=== PATIENT | female | born 1980 | race American Indian/Alaskan Native ===

== ENCOUNTER 2018-06-21 22:26 | Emergency (ER) | payer OTHER ==
--- NOTE | 2018-06-21 22:41 | Emergency Department Report ---
Chief Complaint: Dyspnea/Respdistress Stated Complaint: SOB,EDEMA Time Seen by Provider: 06/21/18 22:40 - HPI History of Present Illness: ble pain sent by [facility] 3 y ago no blood thinners bc- esure no sob or cp mse completed - Exam Vital Signs: Vital Signs 06/21/18 22:38 Temperature 98.6 F Pulse Rate 78 Respiratory 16 Rate Blood Pressure 123/82 O2 Sat by Pulse 96 Oximetry MSE screening note: Focused history and physical exam performed. Due to findings the following was ordered: ED Disposition for MSE Condition: Stable
[2018-06-21 23:50] LABS: Alanine Aminotransferase 14 units/L (7-56); Albumin 3.8 g/dL (3.9-5); BUN/Creatinine Ratio 13; Blood Urea Nitrogen 9 mg/dL (7-17); Calcium 8.8 mg/dL (8.4-10.2); Hemolysis Index 4
[2018-06-21 23:52] LABS: Hematocrit 37.1 % (30.3-42.9); Hemoglobin 12.1 gm/dl (10.1-14.3); Mean Corpuscular HGB Conc 33 % (30-34); Mean Corpuscular Volume 75 fl (79-97); Platelet Count 229 K/mm3 (140-440); Red Blood Count 4.93 M/mm3 (3.65-5.03); Red Cell Distribution Width 15.9 % (13.2-15.2)
[2018-06-22] MEDS ORDERED: IBUPROFEN PO ONE (00:27)
[2018-06-22] MEDS ORDERED: TYLENOL PO ONE (00:27)
--- NOTE | 2018-06-22 00:28 | Emergency Department Report ---
ED General Adult HPI - General Chief complaint: Dyspnea/Respdistress Stated complaint: SOB,EDEMA Time Seen by Provider: 06/21/18 22:40 Source: patient, RN notes reviewed Mode of arrival: Ambulatory Limitations: No Limitations - History of Present Illness Initial comments: Primary care DrElijah: Erich stock This is an obese 38-year-old female, who reports that she is not , who reports a history of associated DVT. She presents to the emergency room today with complaint of nontraumatic right dorsal and distal foot pain, right medial ankle pain, and right distal medial lower extremity pain. This is a throbbing aching pain, present for 2 weeks, intermittent, worsens with palpation, and it decreases with rest. Patient denies oral contraceptive use, calf pain, Swelling and chest pain. She endorses shortness of breath. The shortness of breath is present for 4-5 days. It is intermittent. It is nonexertional. Patient reports that she feels like she "worked out really heavy." The patient also complains of headache. The headache is "all over my head." The headache has been present constantly for 2 weeks. The headache is not described as sudden or thunderclap in nature, she reports it did not reach maximal intensity within an hour, and there is no vomiting, neck pain or neck stiffness. There is no focal extremity weakness. There is no ataxia. The patient reports she has not taken any [id number] medications. Apparently, the [facility] sent her here to exclude a DVT. -: Gradual, week(s) Location: head, right, lower extremity Severity scale (0 -10): 0 Quality: aching Consistency: other Improves with: other Worsens with: other - Related Data Previous Rx's Medication Instructions Recorded Last Taken Type Acetaminophen [Tylenol Arthritis] 650 mg PO Q6HR PRN #30 tablet.er 06/22/18 Unknown Rx Ibuprofen [Motrin] 600 mg PO Q8H PRN #30 tablet 06/22/18 Unknown Rx Allergies Allergy/AdvReac Type Severity Reaction Status Date / Time chlorhexidine Allergy Unknown Verified 06/21/18 22:31 latex Allergy Unknown Verified 06/21/18 22:31 ED Review of Systems ROS: Stated complaint: SOB,EDEMA Other details as noted in HPI Constitutional: denies: fever Eyes: denies: eye discharge ENT: denies: congestion Respiratory: shortness of breath Cardiovascular: denies: chest pain Musculoskeletal: arthralgia, myalgia Skin: denies: lesions Neurological: headache. denies: weakness, numbness, paresthesias, confusion ED Past Medical Hx - Past Medical History Previous Medical History?: Yes Hx Deep Vein Thrombosis: Yes - Surgical History Past Surgical History?: No - Social History Smoking Status: Never Smoker Substance Use Type: None - Medications Home Medications: Home Medications Medication Instructions Recorded Confirmed Last Taken Type Acetaminophen [Tylenol Arthritis] 650 mg PO Q6HR PRN #30 tablet.er 06/22/18 Unknown Rx Ibuprofen [Motrin] 600 mg PO Q8H PRN #30 tablet 06/22/18 Unknown Rx ED Physical Exam - General Limitations: No Limitations General appearance: alert, obese - Head Head exam: Present: atraumatic, normocephalic - Eye Eye exam: Present: normal appearance, EOMI. Absent: nystagmus - ENT ENT exam: Present: normal exam, normal orophraynx, mucous membranes moist, normal external ear exam - Neck Neck exam: Present: normal inspection, full ROM. Absent: tenderness, meningismus - Respiratory Respiratory exam: Present: normal lung sounds bilaterally. Absent: respiratory distress - Cardiovascular Cardiovascular Exam: Present: regular rate, normal rhythm, normal heart sounds. Absent: bradycardia, tachycardia, irregular rhythm, systolic murmur, diastolic murmur, rubs, gallop - GI/Abdominal GI/Abdominal exam: Present: soft. Absent: distended, tenderness, guarding, rebound, rigid, pulsatile mass - Extremities Exam Extremities exam: Present: normal inspection (on the dorsal distal aspect of the right foot, on the medial aspect of the ankle joint, there is some tenderness. There is no redness, warmth, pus, streaking or crepitus.), full ROM, other (2+ pulses noted in the bilateral upper, lower extremities. Compartments soft. No long bony tenderness. The pelvis is stable.). Absent: pedal edema, joint swelling, calf tenderness - Back Exam Back exam: Present: normal inspection, full ROM. Absent: paraspinal tenderness, vertebral tenderness - Neurological Exam Neurological exam: Present: alert, normal gait, other (Extraocular movements intact. Tongue midline. No facial droop. Facial sensation intact to light touch in the V1, V2, V3 distribution bilaterally. 5 and 5 strength in 4 extremities.. Sensation is intact to light touch in 4 extremities.). Absent: motor sensory deficit - Psychiatric Psychiatric exam: Present: normal affect, normal mood - Skin Skin exam: Present: warm, dry, intact, normal color. Absent: rash ED Course Vital Signs 06/21/18 06/22/18 06/22/18 22:38 00:16 00:34 Temperature 98.6 F 98.1 F 98.1 F Pulse Rate 78 73 73 Respiratory 16 21 21 Rate Blood Pressure 123/82 111/78 Blood Pressure 111/78 [Left] O2 Sat by Pulse 96 99 99 Oximetry 06/22/18 06/22/18 06/22/18 00:40 00:42 01:00 Temperature Pulse Rate 72 Respiratory 15 15 21 Rate Blood Pressure 109/76 Blood Pressure [Left] O2 Sat by Pulse 100 Oximetry 06/22/18 06/22/18 06/22/18 01:23 01:24 01:53 Temperature Pulse Rate Respiratory 15 25 H 15 Rate Blood Pressure Blood Pressure [Left] O2 Sat by Pulse Oximetry - Reevaluation(s) Reevaluation #1: 06/22/18 00:52 Differential diagnosis, including but limited to: Lower extremity sprain, strain, lower extremity DVT, migraine headache, tension headache, cluster headache, physical deconditioning, obesity, pulmonary hypertension, pneumonia, pneumothorax, pulmonary embolus Assessment and plan: 38-year-old female with multiple complaints. Complaint #1, right lower extremity pain: No redness, pus or streaking. No palpable cord. Most likely musculoskeletal in nature. I doubt a fracture, she is walking with a steady gait. Patient arrived after hours, and currently, we do not have staff members available to perform a lower extremity duplex study. Therefore, I have ordered an outpatient DVT study to be performed. We will treat the patient's pain. Complaint #2, headaches: Headache is present for 2 weeks. The patient has a normal neurologic examination. She has normal vital signs. She walks with a steady gait. Her headache does not have any red flag historical features, to suggest infectious or space-occupying lesion, or hemorrhagic stroke. Therefore, we'll treat the patient with pain medication. Complaint #3, shortness of breath: Patient appears to be fairly obese, and is most likely physically deconditioned. She is not tachycardic, she is not hypoxic, and she is saturating at 99, 100% on room air. EKG is unremarkable, her pulmonary exam is unremarkable, I doubt pulmonary embolus, but we will send a d-dimer to risk stratify the patient. At this point in time, I have a low pretest probability for pulmonary embolus. We will also obtain a chest x-ray. Reevaluation #2: 06/22/18 01:23 Care will be transferred to the overnight physician, Dr. Ag Gibson He will follow up on CT scan of the chest. Explain this to patient. Also explained that patient would need to follow-up as an outpatient for her DVT study. Assuming no pulmonary embolus was identified, we would consider the patient medically suitable for discharge with outpatient follow-up. ED Medical Decision Making - Lab Data Result diagrams: 06/21/18 23:01 06/21/18 23:01 Vital Signs 06/21/18 06/22/18 06/22/18 22:38 00:16 00:40 Temperature 98.6 F 98.1 F Pulse Rate 78 73 Respiratory 16 21 15 Rate Blood Pressure 123/82 Blood Pressure 111/78 [Left] O2 Sat by Pulse 96 99 Oximetry 06/22/18 00:42 Temperature Pulse Rate Respiratory 15 Rate Blood Pressure Blood Pressure [Left] O2 Sat by Pulse Oximetry Lab Results 06/21/18 06/21/18 Range/Units 23:01 23:01 WBC 9.0 (4.5-11.0) K/mm3 RBC 4.93 (3.65-5.03) M/mm3 Hgb 12.1 (10.1-14.3) gm/dl Hct 37.1 (30.3-42.9) % MCV 75 L (79-97) fl MCH 25 L (28-32) pg MCHC 33 (30-34) % RDW 15.9 H (13.2-15.2) % Plt Count 229 (140-440) K/mm3 Sodium 135 L (137-145) mmol/L Potassium 3.5 L (3.6-5.0) mmol/L Chloride 100.0 (98-107) mmol/L Carbon Dioxide 24 (22-30) mmol/L Anion Gap 15 mmol/L BUN 9 (7-17) mg/dL Creatinine 0.7 (0.7-1.2) mg/dL Estimated GFR > 60 ml/min BUN/Creatinine Ratio 13 % Glucose 92 (65-100) mg/dL Calcium 8.8 (8.4-10.2) mg/dL Total Bilirubin 0.40 (0.1-1.2) mg/dL AST 15 (5-40) units/L ALT 14 (7-56) units/L Alkaline Phosphatase 56 (35-129) units/L Total Protein 7.0 (6.3-8.2) g/dL Albumin 3.8 L (3.9-5) g/dL Albumin/Globulin Ratio 1.2 % - EKG Data -: EKG Interpreted by Me EKG shows normal: sinus rhythm Rate: normal - EKG Data When compared to previous EKG there are: previous EKG unavailable 06/22/18 00:52 EKG shows a sinus rhythm, normal axis, 64 bpm, not having chest pain, this EKG appears to be unremarkable, and this EKG is not consistent with ST elevation myocardial infarction. - Radiology Data Radiology results: pending Critical care attestation.: If time is entered above; I have spent that time in minutes in the direct care of this critically ill patient, excluding procedure time. ED Disposition Clinical Impression: Headache, Dyspnea, Right leg pain Disposition: DC- TO HOME OR SELFCARE Is pt being admited?: No Does the pt Need Aspirin: No Condition: Good Additional Instructions: please call [phone], listen for the prompts and select option 1 to speak to our staff, Available Wednesday through Wednesday, 7 am to 5 pm PM to assist you. Make certain to bring the ultrasound requisition form with you. Please return to the ER right away with chest pain, shortness of breath, passing out, lightheadedness, shortness of breath, new, worsening or different symptoms. Follow-up with the primary care doctor or women specialist within the next week for complaint of shortness of breath. Take the pain medications as needed/directed. Rest, avoid heavy lifting, and avoid strenuous physical activities. Weightbearing as tolerated on the right lower extremity. Prescriptions: Ibuprofen [Motrin] 600 mg PO Q8H PRN #30 tablet PRN Reason: Pain Acetaminophen [Tylenol Arthritis] 650 mg PO Q6HR PRN #30 tablet.er PRN Reason: Pain Referrals: DOUGLAS GUERIN MD [Referring] - 3-5 Days ORJIOKE,NGOZIKA A, MD [Staff Physician] - 3-5 Days (pulmonary doctor) PERLA WHITE MD [Staff Physician] - 3-5 Days (primary care) Forms: Work/School Release Form(ED)
[2018-06-22] MEDS ORDERED: REGLAN IV ONE (01:06)
[2018-06-22] MEDS ORDERED: TORADOL IV ONE (01:06)
[2018-06-22] MEDS ORDERED: NACL 0.9% 500 ML 500 ML IV ONE (01:06)
[2018-06-22 01:09] LABS: Bilirubin,Urine NEG (Negative); Blood,Urine NEG (Negative); Color,Urine Yellow (Yellow); Protein,Urine <15 mg/dL mg/dL (Negative)
[2018-06-22 01:12] LABS: HCG Qualitative,Urine Negative (Negative)
--- NOTE | 2018-06-22 02:47 | Cat Scan Report ---
PROCEDURE: CT ANGIOGRAM OF THE CHEST FOR PULMONARY EMBOLISM TECHNIQUE: Computerized axial tomographic angiography of the chest and pulmonary arteries was perfor med after the IV injection of iodinated nonionic contrast. The image data was postprocessed using max imum intensity projection (MIP) and 2-dimensional multiplanar reformatted (MPR) techniques. The exami nation is specifically tailored to the evaluation of the pulmonary arteries per clinical request. Au tomated exposure control, adjustment of mA and/or kV according to patient size, or iterative reconstr uction dose optimization techniques were utilized. CPT G9637, 40663 HISTORY: Shortness of breath R06.02, chest pain unspecified R07.9 , COMPARISONS: None . FINDINGS: Heart and pericardium: Normal. Thoracic aorta: Normal. Pulmonary vasculature: Normal. No pulmonary emboli. Lymph nodes: No enlarged thoracic lymph nodes. Lungs: Lungs are expanded. There are no infiltrates, effusions or pneumothoraces.. Musculoskeletal structures: No significant abnormality. Upper abdominal structures: No significant abnormality. IMPRESSION: There is no pulmonary embolism.. This document is electronically signed by Romel Blancas MD., June 22 2018 02:46:06 AM ET
[2018-06-22 03:52] VITALS: BP 109/76
== END 2018-06-22 04:02 | disposition home or self-care (01) ==
LOC: ED 22:26
DX: R06.00 Dyspnea, unspecified (principal); R51 Headache; M79.604 Pain in right leg; Z86.718 Personal history of other venous thrombosis and embolism; Z91.040 Latex allergy status; Z88.8 Allergy status to other drugs, medicaments and biological substances
CPT/HCPCS: 36415; 71275; 80053; 81001; 81025; 85027; 85379; 93005; 93010; 96374; 96375; 99284; J1885; J2765; J7040; Q9967